=== PATIENT | male | born 1955 | race Caucasian/White ===

== ENCOUNTER 2019-05-07 13:29 | Outpatient (CLI) | payer OTHER | END 2019-05-07 15:00 | disposition home or self-care (01) | LOC: LAB 13:29 | DX: R97.20 Elevated prostate specific antigen [PSA] (principal) ==

== ENCOUNTER → 2019-06-18 | Outpatient (CLI) | payer OTHER | END | disposition home or self-care (01) | LOC: SONOGRAMA 07:11 | DX: R97.20 Elevated prostate specific antigen [PSA] (principal) ==

== ENCOUNTER 2022-05-26 06:19 | Day surgery (SDC) | payer OTHER ==
[~2022-05-26] VITALS: Ht 170.2 cm; Wt 89.4 kg
[~2022-05-26 06:19] MED LIST: COZAAR25 MG PO; CRESTOR20 MG PO; PROPECIA1 MG PO; XIGDUO XR 5 MG1 EACH PO
== END 2022-05-26 15:40 | disposition home or self-care (01) ==
LOC: CIR.AMB 06:19
PROVIDERS: ATTEND Urology
DX: N47.7 Other inflammatory diseases of prepuce (principal); E11.9 Type 2 diabetes mellitus without complications; E78.5 Hyperlipidemia, unspecified; I10 Essential (primary) hypertension; N40.0 Benign prostatic hyperplasia without lower urinary tract symptoms; N47.1 Phimosis; Z20.822 Contact with and (suspected) exposure to COVID-19